=== PATIENT | male | born 1955 | race Caucasian/White ===

== ENCOUNTER → 2020-06-07 | Outpatient (CLI) | payer MEDICARE, OTHER ==
[2020-06-07 14:48] LABS: HEMOGLOBIN 14.6 gm/dl (14.0-17.5); RED BLOOD COUNT 4.87 M/UL (4.20-5.50); WHITE BLOOD COUNT 5.9 K/UL (4.5-11.0)
[2020-06-07 15:19] LABS: BUN/CREATININE RATIO 21 (0-10)
== END ==
LOC: RAD 14:15
PROVIDERS: Internal Medicine
DX: R06.00 Dyspnea, unspecified (principal); R74.8 Abnormal levels of other serum enzymes; D89.89 Other specified disorders involving the immune mechanism, not elsewhere classified; M25.50 Pain in unspecified joint; R76.8 Other specified abnormal immunological findings in serum; F48.2 Pseudobulbar affect
CPT/HCPCS: 36415; 71046; 80053; 85025

== ENCOUNTER → 2020-06-21 | Outpatient (CLI) | payer MEDICARE, OTHER ==
[2020-06-22 23:07] LABS: RHEUMATOID FACTOR (RF) 18.6 IU/mL (0.0-13.9)
[2020-07-06 21:08] LABS: ANTI-EJ AB (RDL) Negative (Negative); ANTI-JO-1 AB (RDL) <20 Units (<20); ANTI-KU AB (RDL) Weak Positive (Negative); ANTI-MDA-5 AB (CADM-140)(RDL) 67 Units (<20); ANTI-MI-2 AB (RDL) Negative (Negative); ANTI-NXP-2 (P140) AB (RDL) <20 Units (<20); ANTI-OJ AB (RDL) Negative (Negative); ANTI-PL-12 AB (RDL) Negative (Negative); ANTI-PL-7 AB (RDL) Negative (Negative); ANTI-PM/SCL-100 AB (RDL) <20 Units (<20); ANTI-SRP AB (RDL) Negative (Negative); ANTI-TIF-1GAMMA AB (RDL) <20 Units (<20); ANTI-U1 RNP AB (RDL) <20 Units (<20); ANTI-U2 RNP AB (RDL) Negative (Negative); ANTI-U3 RNP (FIBRILLARIN)(RDL) Negative (Negative)
== END ==
LOC: LAB 15:11
PROVIDERS: Internal Medicine
DX: M25.551 Pain in right hip (principal); M25.552 Pain in left hip; G89.29 Other chronic pain; R74.8 Abnormal levels of other serum enzymes; R76.8 Other specified abnormal immunological findings in serum; M79.10 Myalgia, unspecified site; M16.0 Bilateral primary osteoarthritis of hip
CPT/HCPCS: 36415; 73522; 82550; 83516; 83520; 85652; 86140; 86200; 86235; 86431

== ENCOUNTER → 2020-07-25 | Outpatient (CLI) | payer MEDICARE, OTHER | LOC: EMI 15:56 | DX: M60.9 Myositis, unspecified (principal) | CPT/HCPCS: 73718 ==

== ENCOUNTER → 2020-09-11 | Outpatient (CLI) | payer MEDICARE, OTHER | LOC: HEART 5 09:00 | DX: R06.00 Dyspnea, unspecified (principal); J84.9 Interstitial pulmonary disease, unspecified | CPT/HCPCS: 94060; 94729 ==

== ENCOUNTER → 2020-12-19 | Outpatient (CLI) | payer MEDICARE ==
[2020-12-20 14:15] LABS: ALDOLASE 8.1 U/L (3.3-10.3)
[2020-12-22 15:15] LABS: NMO IGG AUTOANTIBODIES <1.5 U/mL (0.0-3.0)
== END ==
LOC: LAB 12:57
PROVIDERS: Internal Medicine
DX: R06.00 Dyspnea, unspecified (principal); J84.9 Interstitial pulmonary disease, unspecified; M25.50 Pain in unspecified joint; M60.9 Myositis, unspecified
CPT/HCPCS: 36415; 80076; 82085; 82550; 82728; 83520; 83615

== ENCOUNTER → 2020-12-26 | Outpatient (CLI) | payer MEDICARE | LOC: KOH-I 13:49 | DX: R05 Cough (principal); R06.00 Dyspnea, unspecified; J84.9 Interstitial pulmonary disease, unspecified; J98.4 Other disorders of lung | CPT/HCPCS: 71250 ==

== ENCOUNTER → 2021-10-04 | Outpatient (CLI) | payer MEDICARE | LOC: RAD 08:06 | DX: R06.00 Dyspnea, unspecified (principal) | CPT/HCPCS: 74230; 92611-GN ==